=== PATIENT | female | born 2000 | race Caucasian/White ===

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

== ENCOUNTER 2018-05-20 17:57 | Emergency (ER) | payer OTHER ==
[~2018-05-20] VITALS: Ht 167.6 cm; Wt 138.3 kg
[2018-05-20 18:11] VITALS: Ht 167.6 cm; Wt 138.3 kg
[2018-05-20 21:07] VITALS: BP 148/99
== END 2018-05-20 21:07 | disposition home or self-care (01) ==
LOC: ED 17:57
DX: K04.7 Periapical abscess without sinus (principal); E03.0 Congenital hypothyroidism with diffuse goiter; Z88.0 Allergy status to penicillin; Z88.1 Allergy status to other antibiotic agents

== ENCOUNTER 2018-12-17 07:57 | Emergency (ER) | payer OTHER ==
[~2018-12-17] VITALS: Ht 170.2 cm; Wt 145.1 kg
[2018-12-17 08:02] VITALS: Ht 170.2 cm; Wt 145.1 kg
[2018-12-17 08:44] VITALS: BP 124/67
== END 2018-12-17 08:44 | disposition home or self-care (01) ==
LOC: ED 07:57
DX: M54.5 Low back pain (principal); Z88.0 Allergy status to penicillin

== ENCOUNTER 2019-02-02 07:41 | Emergency (ER) | payer OTHER ==
[~2019-02-02] VITALS: Ht 170.2 cm; Wt 142.7 kg
[2019-02-02 07:56] VITALS: Ht 170.2 cm; Wt 142.7 kg
[2019-02-02 09:51] VITALS: BP 129/80
== END 2019-02-02 09:51 | disposition home or self-care (01) ==
LOC: ED 07:41
DX: N90.89 Other specified noninflammatory disorders of vulva and perineum (principal); Z88.0 Allergy status to penicillin; Z88.1 Allergy status to other antibiotic agents
CPT/HCPCS: 87491; 87591

== ENCOUNTER 2019-06-25 19:03 | Emergency (ER) | payer MEDICAID ==
[~2019-06-25] VITALS: Ht 167.6 cm; Wt 142.9 kg
[2019-06-25 22:41] VITALS: BP 117/64
== END 2019-06-25 22:41 | disposition home or self-care (01) ==
LOC: ED 19:03
DX: M54.5 Low back pain (principal); Z88.0 Allergy status to penicillin; Z88.1 Allergy status to other antibiotic agents
CPT/HCPCS: J1885

== ENCOUNTER 2019-11-22 03:17 | Emergency (ER) | payer BC, OTHER ==
[~2019-11-22] VITALS: Ht 170.2 cm; Wt 152.9 kg
[2019-11-22 03:56] LABS: BASOPHIL % 1.1 % (0-2); PLATELET COUNT 267 x10^3mcL (130-400); RED CELL DISTRIBUTION WIDTH 12.9 % (11.5-14.5)
[2019-11-22 04:12] LABS: CALCIUM 8.6 mg/dL (8.5-10.1); CHLORIDE SERUM 104 mmol/L (98-107); CREATININE SERUM 0.7 mg/dL (0.6-1.0); GFR1 > 60 mL/min; GLUCOSE SERUM 119 mg/dL (74-106); POTASSIUM SERUM 3.7 mmol/L (3.5-5.1); SODIUM SERUM 139 mmol/L (136-145)
[2019-11-22 04:14] LABS: ALBUMIN 3.7 g/dL (3.4-5.0); ALKALINE PHOSPHATASE 74 U/L (46-116); ALT/SGPT 69 U/L (14-59); AST/SGOT 31 U/L (15-37); BILIRUBIN TOTAL 0.58 mg/dL (0.20-1.00); TOTAL PROTEIN, SERUM 7.1 g/dL (6.4-8.2)
[2019-11-22 05:07] VITALS: BP 132/62
== END 2019-11-22 05:07 | disposition home or self-care (01) ==
LOC: ED 03:17
PROVIDERS: Emergency Medicine
DX: R07.2 Precordial pain (principal); R06.02 Shortness of breath; Z88.0 Allergy status to penicillin; Z88.1 Allergy status to other antibiotic agents
CPT/HCPCS: 36415; Q0092